=== PATIENT | female | born 1995 | race Caucasian/White ===

== ENCOUNTER 2018-06-01 10:23 | Emergency (ER) | payer OTHER ==
[2018-06-01] MEDS ORDERED: NORMAL SALINE 1000 ML 1,000 ML IV ONE (10:45)
--- NOTE | 2018-06-01 10:45 | ER Document Report ---
ED Medical Screen (RME) - General Chief Complaint: Headache Stated Complaint: POSSIBLE SEIZURE Time Seen by Provider: 06/01/18 10:38 Mode of Arrival: Ambulatory Information source: Patient, Friend Notes: 23-year-old female with no reported past medical history presents after a syncopal episode and seizure-like activity. Friend who is accompanying the patient states that they were in class together when the patient was standing, "fell out" and had to episodes of reported seizure-like activity. Patient denies history of seizures. She does state that she takes Adderall and Imitrex. She reports a headache last night and 2 days of nausea, vomiting and diarrhea. I have greeted and performed a rapid initial assessment of this patient. A comprehensive ED assessment and evaluation of the patient, analysis of test results and completion of medical decision making process we will be contacted by additional ED providers. PHYSICAL EXAMINATION: GENERAL: Well-appearing, well-nourished and in no acute distress. EYES: Pupils equal round extraocular movements intact, conjunctiva are normal. ENT: Nares patent NECK: Normal range of motion LUNGS: No respiratory distress Musculoskeletal: Normal range of motion NEUROLOGICAL: Normal speech, normal gait. PSYCH: Normal mood, normal affect. SKIN: Warm, Dry, normal turgor, no rashes or lesions noted. TRAVEL OUTSIDE OF THE [place] IN LAST 30 DAYS: No - HPI Onset: Just prior to arrival Onset/Duration: Sudden Quality of pain: No pain Associated Symptoms: Diarrhea, Nausea, Vomiting Exacerbated by: Denies Relieved by: Denies Similar symptoms previously: No Recently seen / treated by doctor: No - Related Data Smoking: Cigarettes Frequency of alcohol use: None Drug Abuse: None Allergies/Adverse Reactions: No Known Allergies Allergy (Unverified 06/01/18 10:24) Physical Exam - Vital signs Vitals: Temp Pulse Resp BP Pulse Ox 99.2 F 117 H 16 148/80 H 100 06/01/18 10:06/01/18 10:06/01/18 10:06/01/18 10:06/01/18 10:28 Course - Vital Signs Vital signs: Temp Pulse Resp BP Pulse Ox 99.2 F 117 H 16 148/80 H 100 06/01/18 10:06/01/18 10:06/01/18 10:06/01/18 10:06/01/18 10:28
[2018-06-01 11:26] LABS: ABSOLUTE LYMPHOCYTES (AUTO) 1.6 10^3/uL (0.5-4.7); ABSOLUTE MONOCYTES (AUTO) 0.5 10^3/uL (0.1-1.4); ABSOLUTE NEUT (AUTO) 5.6 10^3/uL (1.7-8.2); BASOPHILS % (AUTO) 0.6 % (0-2); EOSINOPHILS % (AUTO) 0.2 % (0-6); HEMOGLOBIN 15.8 g/dL (12.0-15.5); LYMPHOCYTES % (AUTO) 20.3 % (13-45); MEAN CORPUSCULAR HEMOGLOBIN 33.3 pg (27.0-33.4); MEAN CORPUSCULAR HGB CONC 34.3 g/dL (32.0-36.0); MEAN CORPUSCULAR VOLUME 97 fl (80-97); MONOCYTES % (AUTO) 6.9 % (3-13); PLATELET COUNT 278 10^3/uL (150-450); RED BLOOD COUNT 4.74 10^6/uL (3.72-5.28); RED CELL DISTRIBUTION WIDTH 12.5 % (11.5-14.0); TOTAL CELLS COUNTED % (AUTO) 100 %; WHITE BLOOD COUNT 7.7 10^3/uL (4.0-10.5)
[2018-06-01 11:31] LABS: APPEARANCE,URINE SLIGHTLY-CLOUDY; BILIRUBIN,URINE NEGATIVE (NEGATIVE); COLOR,URINE YELLOW; GLUCOSE, URINE NEGATIVE (NEGATIVE); KETONES,URINE NEGATIVE (NEGATIVE); LEUKOCYTE ESTERASE,URINE NEGATIVE (NEGATIVE); NITRITE,URINE NEGATIVE (NEGATIVE); PROTEIN,URINE NEGATIVE (NEGATIVE); URINE SPECIFIC GRAVITY 1.005; UROBILINOGEN,URINE NEGATIVE mg/dL (<2.0)
[2018-06-01] MEDS ORDERED: LORAZEPAM INJ 2 MG/1 ML VIAL IV ONE (11:42)
[2018-06-01 11:43] LABS: ALANINE AMINOTRANSFERASE 18 U/L (9-52); ALBUMIN 5.1 g/dL (3.5-5.0); ALKALINE PHOSPHATASE 64 U/L (38-126); ANION GAP 11 (5-19); ASPARTATE AMINO TRANSFERASE 24 U/L (14-36); BILIRUBIN,DIRECT 0.4 mg/dL (0.0-0.4); BILIRUBIN,TOTAL 0.7 mg/dL (0.2-1.3); BLOOD UREA NITROGEN 10 mg/dL (7-20); CALCIUM 9.9 mg/dL (8.4-10.2); CARBON DIOXIDE 27 mmol/L (22-30); CHLORIDE 104 mmol/L (98-107); GLUCOSE 115 mg/dL (75-110); LIPASE 48.2 U/L (23-300); POTASSIUM 4.1 mmol/L (3.6-5.0); TOTAL PROTEIN 8.2 g/dL (6.3-8.2)
--- NOTE | 2018-06-01 11:45 | ER Document Report ---
ED General - General Chief Complaint: Headache Stated Complaint: POSSIBLE SEIZURE Time Seen by Provider: 06/01/18 10:38 Mode of Arrival: Ambulatory Information source: Patient Notes: 23-year-old female brought to the emergency department by EMS status post syncope versus seizure. Patient was standing next to history smoking 1 her friend says that she began complaining of nausea and lightheadedness. She then fell to the ground and was unresponsive. After a few seconds on the ground she began having tonic-clonic movements. The patient's friend says that this lasted a few seconds. The patient regained consciousness after approximately 1 minute. She currently complains of a headache, nausea, vomiting. Patient states that she has had similar episodes in the past. She states that she was told it was related to stress and anxiety. She states that she has been under a lot of stress this week and thinks that that is what predisposed her to this syncope versus seizure event that happened today. She is not on any medication for anxiety or seizures. Patient denies any neuro deficits. TRAVEL OUTSIDE OF THE [place] IN LAST 30 DAYS: No - HPI Onset: Just prior to arrival Onset/Duration: Sudden Quality of pain: Dull Severity: Moderate Pain Level: 2 Associated symptoms: Other - nausea, vomiting, lightheadedness. Exacerbated by: Denies Relieved by: Denies Similar symptoms previously: Yes Recently seen / treated by doctor: No - Related Data Allergies/Adverse Reactions: No Known Allergies Allergy (Verified 06/01/18 11:08) Past Medical History - General Information source: Patient, Friend - Social History Smoking Status: Current Every Day Smoker Frequency of alcohol use: None Drug Abuse: None Family History: Reviewed & Not Pertinent Patient has suicidal ideation: No Patient has homicidal ideation: No Renal/ Medical History: Denies: Hx Peritoneal Dialysis Past Surgical History: Reports: Hx Orthopedic Surgery - ankle Review of Systems - Review of Systems Constitutional: No symptoms reported EENT: Other - headache Cardiovascular: No symptoms reported Respiratory: No symptoms reported Gastrointestinal: Nausea, Vomiting Genitourinary: No symptoms reported Female Genitourinary: No symptoms reported Musculoskeletal: No symptoms reported Skin: No symptoms reported Hematologic/Lymphatic: No symptoms reported Neurological/Psychological: No symptoms reported -: Yes All other systems reviewed and negative Physical Exam - Vital signs Vitals: Temp Pulse Resp BP Pulse Ox 99.2 F 117 H 16 148/80 H 100 06/01/18 10:28 06/01/18 10:28 06/01/18 10:28 06/01/18 10:28 06/01/18 10:28 - General General appearance: Appears well, Alert Notes: PHYSICAL EXAMINATION: GENERAL: Well-appearing, well-nourished and in no acute distress. HEAD: Atraumatic, normocephalic. EYES: Pupils equal round and reactive to light, extraocular movements intact, conjunctiva are normal. ENT: Nares patent, oropharynx clear without exudates. Moist mucous membranes. NECK: Normal range of motion, supple without lymphadenopathy LUNGS: Breath sounds clear to auscultation bilaterally and equal. No wheezes rales or rhonchi. HEART: Regular rate and rhythm without murmurs ABDOMEN: Soft, nontender, nondistended abdomen. No guarding, no rebound. No masses appreciated. Female : deferred Musculoskeletal: Normal range of motion, no pitting or edema. No cyanosis. NEUROLOGICAL: Cranial nerves grossly intact. Normal speech, normal gait. Normal sensory, motor exams PSYCH: Normal mood, normal affect. SKIN: Warm, Dry, normal turgor, no rashes or lesions noted. Course - Re-evaluation Re-evalutation: 06/01/18 11:49 orthostatic vitals done and are WNL. 06/01/18 12:17 EKG: Ventricular rate 96, para interval 160, QRS duration 74, QTc 430, sinus rhythm, no ischemic changes. 06/01/18 14:26 Labs and imaging were obtained. No acute process identified. Patient instructed to follow-up with her primary care physician this week, to take over- the-counter medication as needed for symptom relief, and to return to emergency department for worsening symptoms. Patient is agreeable with plan of care. - Vital Signs Vital signs: Temp Pulse Resp BP Pulse Ox 99.2 F 88 16 127/78 H 100 06/01/18 10:28 06/01/18 11:47 06/01/18 10:28 06/01/18 11:47 06/01/18 10:28 - Laboratory Result Diagrams: 06/01/18 11:00 06/01/18 11:00 Laboratory results interpreted by me: 06/01/18 06/01/18 06/01/18 11:00 11:00 11:00 Hgb 15.8 H Glucose 115 H Albumin 5.1 H Urine Blood SMALL H Discharge - Discharge Clinical Impression: Syncope and collapse Condition: Good Instructions: Syncopal Episode ([facility]) Referrals: VI LANDRY MD [ACTIVE STAFF] - Follow up as needed
[2018-06-01 11:50] LABS: URINE AMPHETAMINES SCREEN UNCONFIRMED POSITIVE; URINE BARBITURATES SCREEN NEGATIVE; URINE BENZODIAZEPINES SCREEN NEGATIVE; URINE COCAINE SCREEN NEGATIVE; URINE MARIJUANA (THC) SCREEN NEGATIVE; URINE METHADONE SCREEN NEGATIVE; URINE PHENCYCLIDINE SCREEN NEGATIVE
--- NOTE | 2018-06-01 13:12 | RADIOLOGY REPORT (SQ) ---
EXAM DESCRIPTION: CT HEAD WITHOUT COMPLETED DATE/TIME: 06/01/2018 12:41 pm REASON FOR STUDY: seizure COMPARISON: None. TECHNIQUE: Axial images acquired through the brain without intravenous contrast. Images reviewed wi th bone, brain and subdural windows. Additional sagittal and coronal reconstructions were generated. Images stored on PACS. All CT scanners at this facility use dose modulation, iterative reconstruction, and/or weight based d osing when appropriate to reduce radiation dose to as low as reasonably achievable (ALARA). [facility]: Dose Right [facility]: CareDose [facility]: Dose Right [facility]: Teradose 4D [facility]: Superprotonic RADIATION DOSE: CT Rad equipment meets quality standard of care and radiation dose reduction techniq ues were employed. CTDIvol: 53.2 mGy. DLP: 1017 mGy-cm. mGy. LIMITATIONS: None. FINDINGS: VENTRICLES: Normal size and contour. CEREBRUM: No masses. No hemorrhage. No midline shift. No evidence for acute infarction. Normal gra y/white matter differentiation. No areas of low density in the white matter. CEREBELLUM: No masses. No hemorrhage. No alteration of density. No evidence for acute infarction. EXTRAAXIAL SPACES: No fluid collections. No masses. ORBITS AND GLOBE: No intra- or extraconal masses. Normal contour of globe without masses. CALVARIUM: No fracture. PARANASAL SINUSES: No fluid or mucosal thickening. SOFT TISSUES: No mass or hematoma. OTHER: No other significant finding. IMPRESSION: NORMAL BRAIN CT WITHOUT CONTRAST. EVIDENCE OF ACUTE STROKE: NO. COMMENT: Quality ID # [id number]: Final reports with documentation of one or more dose reduction techniques (e.g., Automated exposure control, adjustment of the mA and/or kV according to patient size, use of iterative reconstruction technique) TECHNICAL DOCUMENTATION: JOB ID: [id number] [employer]- All Rights Reserved Reading location - IP/workstation name: [email or web address]
[2018-06-01 15:21] VITALS: BP 120/80
--- NOTE | 2018-06-03 20:53 | EKG REPORT ---
SEVERITY:- BORDERLINE ECG - SINUS RHYTHM BORDERLINE T ABNORMALITIES, INFERIOR LEADS : Confirmed by: Emelia Nuñez MD 03-Jun-2018 20:52:54
== END 2018-06-01 15:19 | disposition home or self-care (01) ==
LOC: ER 10:23 → EEVIPCON 10:23 → ER 15:19
DX: R55 Syncope and collapse (principal); R51 Headache; R11.0 Nausea; F17.200 Nicotine dependence, unspecified, uncomplicated
CPT/HCPCS: 93005; 99284; 96361; 96374; 36415; 83690; 85025; 81025; 80053; 81001; 80307; 70450; 93010; J2060